=== PATIENT | male | born 1975 | race Caucasian/White ===

== ENCOUNTER 2018-08-11 20:43 | Emergency (ER) | payer SELFPAY ==
[~2018-08-11] VITALS: Ht 160 cm; Wt 95.7 kg
[2018-08-11 20:45] VITALS: BP 135/95; PULSE 99; RESP 18; Ht 160 cm; Wt 95.7 kg
== END 2018-08-11 22:17 | disposition left against medical advice (07) ==
LOC: E/R 20:43
DX: Z53.21 Procedure and treatment not carried out due to patient leaving prior to being seen by health care provider (principal)